=== PATIENT | male | born 2000 | race American Indian/Alaskan Native ===

== ENCOUNTER 2021-02-22 05:44 | Emergency (ER) | payer SELFPAY ==
[2021-02-22] MEDS ORDERED: IPRATROPIUM 0.02% NEBU 2.5 ML IH ONE ×2 (05:49→05:51)
[2021-02-22] MEDS ORDERED: ALBUTEROL 2.5 MG/3 ML NEBU IH ONE ×2 (05:49→05:51)
[2021-02-22] MEDS ORDERED: predniSONE 20 MG TAB PO ONE (05:49)
--- NOTE | 2021-02-22 06:25 | Emergency Department Report ---
ED Shortness of Breath HPI - General Chief Complaint: Dyspnea/Respdistress Stated Complaint: ASTHMA Time Seen by Provider: 02/22/21 06:22 Source: patient Mode of arrival: Ambulatory Limitations: No Limitations - History of Present Illness Initial Comments: Patient presents with asthma exacerbation and shortness of breath. The started over the last 2 days. He has had some nasal congestion with minimal cough. There is no vomiting or diarrhea. He states he has been using his inhaler without symptomatic improvement. He has had no hemoptysis. There is no recent travel. He has not had any allergen exposure. He has had no sick contacts. He does not think he has coronavirus as he has no fevers, muscle aches, body aches, and no known exposure. He has been admitted before with asthma, never intubated. - Related Data Previous Rx's Medication Instructions Recorded Last Taken Type Albuterol Sulfate [Proventil Hfa] 2 puff IH 4XD #1 inh 02/22/21 Unknown Rx Guaifenesin/Pseudoephedrne HCl 1 each PO BID #20 tab 02/22/21 Unknown Rx [Mucinex D ER Tablet] predniSONE [Deltasone] 50 mg PO QDAY #5 tab 02/22/21 Unknown Rx Allergies Allergy/AdvReac Type Severity Reaction Status Date / Time ibuprofen [From Motrin] Allergy Swelling Verified 02/22/21 05:47 ED Review of Systems ROS: Stated complaint: ASTHMA Other details as noted in HPI Comment: All other systems reviewed and negative Constitutional: denies: fever Eyes: denies: eye pain ENT: denies: throat pain Respiratory: see HPI Cardiovascular: denies: chest pain Endocrine: denies: unexplained weight loss Gastrointestinal: denies: abdominal pain Genitourinary: denies: dysuria Musculoskeletal: denies: back pain Skin: denies: rash Neurological: denies: headache Hematological/Lymphatic: denies: easy bruising ED Past Medical Hx - Past Medical History Hx Asthma: Yes - Family History Family history: asthma - Social History Smoking Status: Never Smoker - Medications Home Medications: Home Medications Medication Instructions Recorded Confirmed Last Taken Type Albuterol Sulfate [Proventil Hfa] 2 puff IH 4XD #1 inh 02/22/21 Unknown Rx Guaifenesin/Pseudoephedrne HCl 1 each PO BID #20 tab 02/22/21 Unknown Rx [Mucinex D ER Tablet] predniSONE [Deltasone] 50 mg PO QDAY #5 tab 02/22/21 Unknown Rx ED Physical Exam - General Limitations: No Limitations, Other (Pulse ox noted and hypoxic. This improved with treatment.) General appearance: alert, in distress (Moderate) - Head Head exam: Present: atraumatic, normocephalic - Eye Eye exam: Present: normal appearance, EOMI. Absent: scleral icterus - ENT ENT exam: Present: normal orophraynx, normal external ear exam - Neck Neck exam: Present: normal inspection. Absent: meningismus - Respiratory Respiratory exam: Present: respiratory distress (Moderate), wheezes (Bilateral), prolonged expiratory - Cardiovascular Cardiovascular Exam: Present: normal rhythm, tachycardia - GI/Abdominal GI/Abdominal exam: Present: soft. Absent: tenderness - Extremities Exam Extremities exam: Absent: pedal edema, calf tenderness - Back Exam Back exam: Absent: CVA tenderness (R), CVA tenderness (L) - Neurological Exam Neurological exam: Present: alert, oriented X3, CN II-XII intact, normal gait. Absent: motor sensory deficit - Psychiatric Psychiatric exam: Present: normal affect, normal mood - Skin Skin exam: Present: warm, dry ED Course Vital Signs 02/22/21 02/22/21 05:50 06:02 Pulse Rate 150 H 135 H Pulse Rate [ 133 H Bilateral Throughout] Respiratory 24 Rate Respiratory 24 Rate [Bilateral Throughout] Blood Pressure 142/89 [Right] O2 Sat by Pulse 94 94 Oximetry - Reevaluation(s) Reevaluation #1: 02/22/21 06:25 Old records noted. Continuous neb started. IVF ordered. Reevaluation #2: 02/22/21 07:51 Patient has improved. He still has a faint wheeze, but is not hypoxic. He is not in any respiratory distress. There is no pneumonia. Patient was discharged. ED Medical Decision Making - Radiology Data Radiology results: report reviewed - Medical Decision Making Patient presents with an asthma exacerbation of mild upper respiratory infection. He does not appear to be septic or toxic. He certainly could have coronavirus or some other viral infection. He does not require emergent treatment otherwise. Asthma has been improved. He does not have evidence of respiratory failure or hypoxia. He will not require intubation. I do believe that outpatient management would be most appropriate for this gentleman. He is comfortable with the plan and actually states that he feels much better after breathing treatments. Critical Care Time: No Critical care attestation.: If time is entered above; I have spent that time in minutes in the direct care of this critically ill patient, excluding procedure time. ED Disposition Clinical Impression: Viral URI Asthma exacerbation Qualifiers: Asthma severity: moderate Asthma persistence: persistent Qualified Code(s): J45.41 - Moderate persistent asthma with (acute) exacerbation Disposition: HOME / SELF CARE / HOMELESS Is pt being admited?: No Condition: Stable Instructions: Asthma, Adult, Preventing Asthma Attacks From Outdoor Allergens, Teen, Viral Respiratory Infection, [id number], Cool Mist Vaporizer Additional Instructions: Push fluids. Return for problems. Follow-up with your regular doctor for recheck. Continue home medication. If you do not have a regular doctor, follow-up with the referral physician. Prescriptions: predniSONE [Deltasone] 50 mg PO QDAY #5 tab Guaifenesin/Pseudoephedrne HCl [Mucinex D ER Tablet] 1 each PO BID #20 tab Albuterol Sulfate [Proventil Hfa] 2 puff IH 4XD #1 inh Referrals: ALMITA IBARRA MD [Primary Care Provider] - 3-5 Days ROSA TUCKER MD [Staff Physician] - 3-5 Days
[2021-02-22] MEDS ORDERED: MAGNESIUM SULFATE 2 GM/50 ML BAG IV ONE (06:26)
[2021-02-22] MEDS ORDERED: SODIUM CHLORIDE 0.9% 1000 ML 1,000 ML IV ONE (06:26)
--- NOTE | 2021-02-22 07:14 | XRay Report ---
CHEST 2 VIEWS INDICATION / CLINICAL INFORMATION: cough sob. COMPARISON: None available. FINDINGS: SUPPORT DEVICES: None. HEART / MEDIASTINUM: No significant abnormality. LUNGS / PLEURA: No significant pulmonary or pleural abnormality. No pneumothorax. ADDITIONAL FINDINGS: No significant additional findings. IMPRESSION: 1. No acute findings. Signer Name: Kristie Pruett MD Signed: 02/22/2021 7:09 AM Workstation Name: [id number]
[2021-02-22 08:26] VITALS: BP 121/82
== END 2021-02-22 08:26 | disposition home or self-care (01) ==
LOC: ED 05:44
DX: J45.901 Unspecified asthma with (acute) exacerbation (principal); J06.9 Acute upper respiratory infection, unspecified
CPT/HCPCS: 71046; 94644; 96365; 99284; J3475; J7030; J7512; Q0162